=== PATIENT | female | born 1975 | race Caucasian/White ===

== ENCOUNTER 2022-12-03 20:52 | Emergency (ER) | payer BC, OTHER ==
[2022-12-03] MEDS: Nitroglycerin 0.4 MG Tab.SL SL PRN ×3 (21:22→21:43)
[2022-12-03] MEDS ORDERED: Nitroglycerin/D5W 25 MG/250 ML BOTTLE IV SCH (22:15)
[2022-12-03] MEDS ORDERED: Heparin Sodium 5,000 Units/ML Vial IVPUSH ONE (22:42)
[2022-12-03] MEDS ORDERED: Heparin Sodium/D5W 25,000 UNITS/500 ML BAG IV SCH (22:43)
[2022-12-03] MEDS ORDERED: Aspirin 81 MG Tab.Chew PO ONE (22:43)
[2022-12-03] MEDS ORDERED: Metoprolol Succinate 25 MG Tab.ER PO ONE (22:56)
[2022-12-03] MEDS ORDERED: atorvaSTATin 40 MG Tab PO ONE (22:58)
== END 2022-12-03 23:19 | disposition other institution (70) ==
LOC: JD.ED 20:52
DX: I21.4 Non-ST elevation (NSTEMI) myocardial infarction (principal); Z88.2 Allergy status to sulfonamides; Z91.040 Latex allergy status
CPT/HCPCS: 36415; 71045; 80053; 83880; 84484; 85025; 85610; 85730; 93005; 96365; 96375; 99285; A9270; J1644; J3490; 93010

== ENCOUNTER 2024-03-29 14:08 | Emergency (ER) | payer SELFPAY ==
[2024-03-29] MEDS: Acetaminophen 325 MG Tab PO ONE (15:17)
[2024-03-29] MEDS: Sodium Chloride 0.9% 1,000 ML IV ONE (15:17)
[2024-03-29 15:20] LABS: BASOPHILS ABSOLUTE AUTO 0.1 K/mm3 (0.0-0.2); BASOPHILS PERCENT AUTO 0.5 % (0.0-1.0); EOSINOPHILS ABSOLUTE AUTO 0.2 K/mm3 (0.0-0.4); EOSINOPHILS PERCENT AUTO 1.6 % (0.0-6.0); HEMATOCRIT 41.5 % (37.0-47.0); HEMOGLOBIN 13.6 gm/dl (12.0-16.0); IMMATURE GRAN ABSOLUTE AUTO 0.03 K/mm3 (0.00-0.05); IMMATURE GRAN PERCENT AUTO 0.3 % (0.0-0.4); LYMPHOCYTES PERCENT AUTO 31.6 % (24.0-44.0); MEAN CORPUSCULAR HEMOGLOBIN 28.3 pg (28.0-32.0); MEAN CORPUSCULAR HGB CONC 32.8 g/dl (32.0-36.0); MEAN CORPUSCULAR VOLUME 86.5 fl (83.0-99.0); MONOCYTES ABSOLUTE AUTO 0.7 K/mm3 (0.0-0.8); MONOCYTES PERCENT AUTO 7.5 % (0.0-8.0); NEUTROPHILS ABSOLUTE AUTO 5.6 K/mm3 (1.8-7.7); NEUTROPHILS PERCENT AUTO 58.5 % (41.0-71.0); PLATELET COUNT,PLT 333 K/mm3 (150-400); WHITE BLOOD CELL COUNT,WBC 9.57 K/mm3 (3.9-11.3)
[2024-03-29] MEDS: Sodium Chloride 0.9% 10 ML Syringe FLUSH PRN ×2 (15:23→15:24)
[2024-03-29 15:37] LABS: INR 1.03; PROTHROMBIN TIME 10.9 SECONDS (9.7-12.0)
[2024-03-29 15:38] LABS: PTT,PARTIAL THROMBOPLSTIN TIME 28.2 SECONDS (21.7-31.4)
[2024-03-29 15:55] LABS: A/G RATIO 1.2 (1-2); ALANINE AMINOTRANSFERASE,ALT 32 U/L (14-59); ALBUMIN 3.5 g/dl (3.4-5.0); ALKALINE PHOSPHATASE 114 U/L (46-116); ANION GAP 8.9 (5-15); ASPARTATE AMNIOTRANSFERASE,AST 19 U/L (15-37); BILIRUBIN TOTAL 0.3 mg/dL (0.2-1.0); BLOOD UREA NITROGEN,BUN 13 mg/dL (7-18); C-REACTIVE PROTEIN 0.51 mg/dL (<0.30); CALCIUM 8.2 mg/dL (8.5-10.1); CARBON DIOXIDE,CO2 28 mEq/L (21-32); CHLORIDE,CL 104 mEq/L (98-107); EST CRCL DRUG DOSING (CG) 70.34 mL/min; ESTIMATED GFR 69 mL/min (>60); GLUCOSE RANDOM 97 mg/dL (70-99); MAGNESIUM 1.9 mg/dL (1.8-2.4); POTASSIUM,K 3.9 mEq/L (3.5-5.1); PROTEIN TOTAL,TP 6.5 g/dl (6.4-8.2); SODIUM,NA 137 mEq/L (136-145)
[2024-03-29] MEDS: Iopamidol 755 Mg/ML 100 ML Bottle IVPUSH ONE (15:57)
[2024-03-29] MEDS: Sodium Chloride 0.9% 100 ML IV SCH (15:57)
[2024-03-29 16:06] LABS: TROPONIN I HIGH SENSITIVITY < 4 pg/mL (<=51)
[2024-03-29 17:04] LABS: APPEARANCE,URINE CLEAR (Clear); BILIRUBIN,URINE NEGATIVE (Negative); COLOR,URINE YELLOW (Yellow); GLUCOSE,URINE NEGATIVE (Negative); KETONES,URINE NEGATIVE (Negative); LEUKOCYTE ESTERASE,URINE NEGATIVE (Negative); NITRITE,URINE NEGATIVE (Negative); OCCULT BLOOD,URINE NEGATIVE (Negative); PROTEIN,URINE NEGATIVE (Negative); UROBILINOGEN,URINE 0.2 (0.2-1.0)
== END 2024-03-29 17:49 | disposition home or self-care (01) ==
LOC: JD.ED 14:08
DX: H53.8 Other visual disturbances (principal); R51.9 Headache, unspecified; I10 Essential (primary) hypertension; E78.00 Pure hypercholesterolemia, unspecified; E03.9 Hypothyroidism, unspecified; Z86.16 Personal history of COVID-19; Z91.040 Latex allergy status; Z88.5 Allergy status to narcotic agent; Z88.2 Allergy status to sulfonamides; Z79.890 Hormone replacement therapy; Z79.899 Other long term (current) drug therapy
CPT/HCPCS: 36415; 70450; 70496; 70498; 80053; 81003; 82947; 83735; 84484; 84703; 85025; 85610; 85652; 85730; 86140; 93005; 99284; J3490; J7030; Q9967